=== PATIENT | female | born 1980 | race Two or more races ===

== ENCOUNTER 2022-11-20 11:58 | Emergency (ER) | payer BC, OTHER ==
[~2022-11-20] VITALS: Ht 167.6 cm; Wt 53.5 kg
--- NOTE | 2022-11-20 12:00 | NUR ---
BIB [facility] [address] AND [employer] FROM HOME HAD A ARGUMENT WITH BOYFRIEND AND TOOK UNKNOWN PILLS. + SI. PT IS LETHARGIC UPON ARRIVAL. VSS. PLACED IN BED AND CONNECTED TO MONITOR. SAFETY PRECAUTIONS IN PLACE. AWAITING MD ORDERS.
--- NOTE | 2022-11-20 13:01 | NUR ---
PT APPEARS TO BE SLEEPING IN BED. BREATHING EVEN AND UNLABORED. VITAL SIGN STABLE.
[2022-11-20 13:29] LABS: BASOPHILS % (AUTO) 0.6 % (0.0-2.0); EOSINOPHILS % (AUTO) 1.7 % (0.0-6.0); HEMATOCRIT 39 % (33-45); HEMOGLOBIN 12.8 g/dL (11.5-14.8); LYMPHOCYTES # (AUTO) 1.9 K/uL (0.8-4.8); LYMPHOCYTES % (AUTO) 34.9 % (20.0-44.0); MEAN CORPUSCULAR HGB CONC 33 g/dl (31.0-36.0); MEAN CORPUSCULAR VOLUME 97 fL (82-100); MONOCYTES # (AUTO) 0.6 K/uL (0.1-1.30); MONOCYTES % (AUTO) 10.8 % (2.0-12.0); NEUTROPHILS # (AUTO) 2.8 K/uL (1.8-8.9); PLATELET COUNT (AUTO) 216 K/uL (150-450); RED BLOOD CELL COUNT(AUTO) 3.98 MIL/uL (4.0-5.2); WHITE BLOOD COUNT (AUTO) 5.5 K/uL (4.3-11.0)
[2022-11-20 13:31] LABS: CALCIUM, SERUM 8.9 mg/dL (8.5-10.1); CARBON DIOXIDE 26 mmol/L (21-32); CHLORIDE 109 mmol/L (98-107); CREATININE 0.8 mg/dL (0.6-1.3); GLUCOSE 80 mg/dL (74-106); POTASSIUM 3.7 mmol/L (3.5-5.1); SODIUM SERUM 139 mmol/L (136-145); UREA NITROGEN, BLOOD 8 mg/dL (7-18)
[2022-11-20 13:51] LABS: ALANINE AMINOTRANSFERASE 13 U/L (12-78); ALBUMIN 3.3 g/dL (3.4-5.0); ALCOHOL, BLOOD < 3 mg/dL (0-0); ALKALINE PHOSPHATASE 57 U/L (46-116); ASPARTATE AMINOTRANSFERASE 19 U/L (15-37); BILIRUBIN,DIRECT 0.1 mg/dL (0.0-0.2); BILIRUBIN,TOTAL 0.5 mg/dL (0.2-1.0); TOTAL PROTEIN, SERUM 6.5 g/dL (6.4-8.2)
--- NOTE | 2022-11-20 14:26 | NUR ---
JEAN MARIE [phone] (DAUGHTER)
--- NOTE | 2022-11-20 20:34 | NUR ---
UPDATED DAUGHTER (NIRANJAN) [phone]
--- NOTE | 2022-11-20 23:07 | NUR ---
Maurilio chen in [facility] - 11/20/22 at 2307 by KEVIN Patient discharged to home in stable condition. Written and verbal after care instructions given. Patient verbalizes understanding of instruction.
--- NOTE | 2022-11-20 23:16 | NUR ---
PT DISCHARGED HOME IN STABLE CONDITION. PT AMBULATAED OUT OF THE FACILITY WITH STEADY GAIT
[2022-11-20 23:30] VITALS: BP 111/68
== END 2022-11-20 23:31 | disposition home or self-care (01) ==
LOC: ER 12:00
DX: T50.901A Poisoning by unspecified drugs, medicaments and biological substances, accidental (unintentional), initial encounter (principal); F32.A Depression, unspecified; F41.9 Anxiety disorder, unspecified; Z91.018 Allergy to other foods; Y92.89 Other specified places as the place of occurrence of the external cause
CPT/HCPCS: 36415; 80048-TC; 80076-TC; 85025-TC; G0480

== ENCOUNTER 2023-03-14 00:41 | Emergency (ER) | payer BC, OTHER ==
[~2023-03-14] VITALS: Ht 167.6 cm; Wt 54.4 kg
--- NOTE | 2023-03-14 01:04 | NUR ---
Pt sleeping, not able to assess mental status. No signs of distress or discomfort, O2 sats 98% on room air. Pt on monitor Will continue to monitor throughout shift.
--- NOTE | 2023-03-14 01:06 | NUR ---
Blood and urine collected.
--- NOTE | 2023-03-14 01:15 | NUR ---
covid swab done and sent to lab
[2023-03-14 01:22] LABS: BASOPHILS % (AUTO) 0.8 % (0.0-2.0); EOSINOPHILS % (AUTO) 2.8 % (0.0-6.0); HEMATOCRIT 37 % (33-45); HEMOGLOBIN 12.4 g/dL (11.5-14.8); LYMPHOCYTES # (AUTO) 1.4 K/uL (0.8-4.8); LYMPHOCYTES % (AUTO) 24.1 % (20.0-44.0); MEAN CORPUSCULAR HGB CONC 34 g/dl (31.0-36.0); MEAN CORPUSCULAR VOLUME 96 fL (82-100); MONOCYTES # (AUTO) 0.6 K/uL (0.1-1.30); MONOCYTES % (AUTO) 9.7 % (2.0-12.0); NEUTROPHILS # (AUTO) 3.6 K/uL (1.8-8.9); NEUTROPHILS % (AUTO) 62.6 % (43.0-81.0); PLATELET COUNT (AUTO) 238 K/uL (150-450); RED BLOOD CELL COUNT(AUTO) 3.83 MIL/uL (4.0-5.2); WHITE BLOOD COUNT (AUTO) 5.8 K/uL (4.3-11.0)
[2023-03-14 01:30] LABS: BILIRUBIN,URINE NEGATIVE (NEGATIVE); COLOR,URINE YELLOW (YELLOW); LEUKOCYTE ESTERASE ,URINE NEGATIVE (NEGATIVE); NITRITE, URINE NEGATIVE (NEGATIVE); PROTEIN,URINE TRACE mg/dl (NEGATIVE); UGLUCOSE NEGATIVE (NEGATIVE); UROBILINOGEN,URINE 0.2 EU/dL (0.2)
[2023-03-14 01:45] LABS: ALANINE AMINOTRANSFERASE 19 U/L (12-78); ALBUMIN 3.6 g/dL (3.4-5.0); ALKALINE PHOSPHATASE 72 U/L (46-116); ASPARTATE AMINOTRANSFERASE 24 U/L (15-37); BILIRUBIN,DIRECT 0.1 mg/dL (0.0-0.2); BILIRUBIN,TOTAL 0.3 mg/dL (0.2-1.0); CALCIUM, SERUM 8.4 mg/dL (8.5-10.1); CARBON DIOXIDE 28 mmol/L (21-32); CHLORIDE 104 mmol/L (98-107); CREATININE 0.7 mg/dL (0.6-1.3); GLUCOSE 90 mg/dL (74-106); SODIUM SERUM 137 mmol/L (136-145); TOTAL PROTEIN, SERUM 6.9 g/dL (6.4-8.2); UREA NITROGEN, BLOOD 9 mg/dL (7-18)
[2023-03-14 01:52] LABS: ALCOHOL, BLOOD < 3 mg/dL (0-10)
[2023-03-14 01:53] LABS: POTASSIUM 2.8 mmol/L (3.5-5.1)
--- NOTE | 2023-03-14 01:58 | NUR ---
MARNIEASA VELASQUEZ [phone]
[2023-03-14] MEDS ORDERED: POTASSIUM CHLORIDE 20 MEQ TAB.PRT.SR PO ONE ×3 (02:00→02:29)
[2023-03-14 02:16] LABS: BACTERIA,URINE Rare /HPF (None Seen); MUCUS,URINE Many /LPF (None Seen); SQUAMOUS EPITHELIAL CELL,UR Few /HPF (None Seen); WBC,URINE 0-2 /HPF (0-3)
--- NOTE | 2023-03-14 09:02 | NUR ---
THE PATIENT SLEEPING IN ER BED #14. RESPONSIVE TO VERBAL STIMULI. RESPIRATION REGULAR AND UNLABORED. WILL CONTINUE TO MONITOR THE PATIENT.
--- NOTE | 2023-03-14 12:23 | NUR ---
LARRY RODRIGUEZ [phone] LEFT VM
--- NOTE | 2023-03-14 12:37 | NUR ---
JEAN MARIE [facility] [phone]
--- NOTE | 2023-03-14 14:40 | NUR ---
SW went to see the patient at the ER but wasn't able to wake her up
--- NOTE | 2023-03-14 16:12 | NUR ---
[facility] ACCEPTING DR. Sandoval-A. CALL [phone], [phone] TO GIVE REPORT.
--- NOTE | 2023-03-14 16:13 | NUR ---
TIFFANI JUVENILE COUNSELOR:[phone]. FAX #[phone]. WILL FAX TEST ONE RESULTED
--- NOTE | 2023-03-14 17:41 | NUR ---
PT ACCEPTED TO [facility] ROOM [address] JANE CALL [phone], [phone] TO GIVE REPORT. [address]ESS [address]. [place] [id number].
--- NOTE | 2023-03-14 17:43 | NUR ---
CALLED [facility] FOR TRANSPORT ETA [phone]
[2023-03-14 17:49] VITALS: BP 103/62; TEMP 98.2
--- NOTE | 2023-03-14 19:08 | NUR ---
patient picked up by private ambulance in no distress accompanied by2 emt's in no distress. Going to [facility].
== END 2023-03-14 19:08 ==
LOC: ER 00:42
DX: T42.4X1A Poisoning by benzodiazepines, accidental (unintentional), initial encounter (principal); F32.A Depression, unspecified; F41.9 Anxiety disorder, unspecified; F19.10 Other psychoactive substance abuse, uncomplicated; E87.6 Hypokalemia; Z20.822 Contact with and (suspected) exposure to COVID-19; Y92.89 Other specified places as the place of occurrence of the external cause
CPT/HCPCS: 99285; 93005; 85025; 80048; 80076; 84703; 81001; 36415; 82962; 87426; 80143; 80320; 80307; C9803; G0480